=== PATIENT | female | born 2000 | race African-American/Black ===

== ENCOUNTER 2022-05-16 13:13 | Emergency (ER) | payer OTHER ==
[~2022-05-16] VITALS: Ht 167.6 cm; Wt 120.9 kg
[2022-05-16] MEDS ORDERED: INDO50CA91 PO (16:31)
[2022-05-16 16:41] VITALS: BP 120/78
== END 2022-05-16 16:47 | disposition home or self-care (01) ==
LOC: M ED 13:13
DX: G89.29 Other chronic pain (principal); M25.531 Pain in right wrist

== ENCOUNTER → 2023-07-08 | Outpatient (CLI) | payer OTHER ==
[~2023-07-08] MED LIST: INDO50CA91 PO; ISOVUE-370 76% 100ML VIAL As Ordered ONE
== END ==
LOC: M RADPRO 11:15
PROVIDERS: ATTEND Obstetrics & Gynecology
DX: N97.9 Female infertility, unspecified (principal)
CPT/HCPCS: 58340; 74740; Q9967

== ENCOUNTER 2023-08-27 21:39 | Emergency (ER) | payer OTHER ==
[~2023-08-27] VITALS: Ht 167.6 cm; Wt 102.3 kg
[~2023-08-27 21:39] MED LIST changes: -ISOVUE-370 76% 100ML VIAL As Ordered ONE; +SYNT25TA
[2023-08-28] MEDS ORDERED: NS 1,000 ML IV ONE (00:50)
[2023-08-28] MEDS ORDERED: METOCLOPRAMIDE INJ 10MG/2ML VIAL IV ONE (00:50)
[2023-08-28 01:11] LABS: BASO # 0.1 10^3/uL (0.0-0.2); BASO % 0.4 % (0.0-1.0); EOS # 0.2 10^3/uL (0.0-0.5); EOS % 1.4 % (0.0-3.0); HEMATOCRIT 39.9 % (36.0-47.0); HEMOGLOBIN 13.7 g/dl (12.0-15.5); LYMPH # 2.6 10^3/uL (1.5-5.0); MEAN CORPUSCULAR HEMOGLOBIN 31.3 pg (27.0-33.0); MEAN CORPUSCULAR HGB CONC 34.3 g/dl (32.0-36.5); MEAN CORPUSCULAR VOLUME 91.1 fl (80.0-96.0); MONO # 0.7 10^3/uL (0.0-0.8); MONO % 5.4 % (2.0-8.0); NEUTROPHILS # 8.9 10^3/uL (1.5-8.5); NEUTROPHILS % 71.5 % (36.0-66.0); PLATELET COUNT, AUTOMATED 251 10^3/uL (150-450); RED BLOOD COUNT 4.38 10^6/uL (4.00-5.40); WHITE BLOOD COUNT 12.5 10^3/uL (4.0-10.0)
[2023-08-28 01:35] LABS: THYROID STIMULATING HORMONE 2.126 uIU/ML (0.55-4.78)
[2023-08-28 01:44] LABS: ALBUMIN 3.7 G/DL (3.2-5.2); ALKALINE PHOSPHATASE 62 U/L (46-116); ALT/SGPT 24 U/L (7.0-40); AST/SGOT 39 U/L (<34); BILIRUBIN,DIRECT < 0.1 MG/DL (<0.4); BILIRUBIN,TOTAL 0.4 MG/DL (0.3-1.2); LIPASE 40 U/L (12-53); TOTAL PROTEIN 7.5 G/DL (5.7-8.2)
[2023-08-28 01:45] LABS: RSV AMPLIFICATION NEGATIVE (NEGATIVE)
[2023-08-28 02:02] VITALS: BP 126/74; TEMP 98.3; O2SAT 99
[2023-08-28] MEDS ORDERED: REGL5TAB2 PO (02:05)
== END 2023-08-28 02:16 | disposition home or self-care (01) ==
LOC: M ED 21:39
DX: O26.891 Other specified pregnancy related conditions, first trimester (principal); O99.281 Endocrine, nutritional and metabolic diseases complicating pregnancy, first trimester; Z79.899 Other long term (current) drug therapy
CPT/HCPCS: 80047; 80076; 83690; 84443; 85025; 87631; 96361; 96374; 99284; J2765

== ENCOUNTER 2024-04-01 23:54 | Outpatient (CLI) | payer OTHER ==
[~2024-04-01] VITALS: Ht 167.6 cm; Wt 121.7 kg
[~2024-04-01 23:54] MED LIST changes: +REGL5TAB2 PO
[2024-04-02 00:11] VITALS: BP 133/81; O2SAT 98
[2024-04-02] MEDS ORDERED: ASPI81CH33 PO (00:20)
[2024-04-02] MEDS ORDERED: PRENTAB9 PO (00:20)
[2024-04-02] MEDS ORDERED: HOME MED LIST COMPLETE! XX SCH (00:20)
[2024-04-02] MEDS ORDERED: ACETAMINOPHEN 500 MG TAB PO PRN (01:15)
[2024-04-02 02:35] VITALS: BP 128/88
== END 2024-04-02 03:28 | disposition home or self-care (01) ==
LOC: M LDO 23:54
PROVIDERS: ATTEND Obstetrics & Gynecology
DX: O26.893 Other specified pregnancy related conditions, third trimester (principal); M54.50 Low back pain, unspecified; Z3A.39 39 weeks gestation of pregnancy
CPT/HCPCS: 59025; 76775; 81001; 87086; G0463